=== PATIENT | female | born 1955 | race Caucasian/White ===

== ENCOUNTER 2025-03-09 19:55 | Emergency (ER) | payer OTHER, SELFPAY ==
[2025-03-09 20:05] VITALS: BP 128/65
[2025-03-09 20:07] VITALS: BP 128/65
[2025-03-09 20:11] VITALS: BMI 27.9
[2025-03-09 20:47] LABS: Blood Urea Nitrogen 28 mg/dl (7-17); Calcium 8.8 mg/dl (8.4-10.2); Carbon Dioxide 16 mmol/L (22-30); Chloride 105 mmol/L (98-107); Estimated Creatinine Clearance 61 ml/min; Glucose 377 mg/dl (70-99); Hematocrit 28.5 % (37.0-47.0); Hemoglobin 10.2 g/dL (12.0-16.0); Mean Corp Hgb Conc. 35.8 g/dL (33.0-37.0); Mean Corpuscular Volume 94.1 fL (81.0-99.0); Nucleated Red Blood Cells % 0 %; Red Cell Dist. Width 13.5 % (11.5-14.5); Sodium 132 mmol/L (135-145); eGFR > 60.00
[2025-03-09 21:00] VITALS: BP 126/47
[2025-03-09 21:19] LABS: Platelet Count 33 10^3/uL (130-400)
[2025-03-09] MEDS: NSS 500 IV (21:33)
[2025-03-09] MEDS: PROTONIX IV 80 MG IV (21:33)
[2025-03-09 22:00] VITALS: BP 131/39
[2025-03-09 22:08] VITALS: BP 139/45
[2025-03-09 22:14] LABS: AST (SGOT) 123 U/L (14-36); Albumin 3.1 g/dl (3.5-5.0); Alkaline Phosphatase 66 U/L (38-126); Blood Urea Nitrogen 30 mg/dl (7-17); Calcium 8.9 mg/dl (8.4-10.2); Carbon Dioxide 19 mmol/L (22-30); Chloride 106 mmol/L (98-107); Estimated Creatinine Clearance 61 ml/min; Glucose 403 mg/dl (70-99); Potassium 3.7 mmol/L (3.5-5.1); Sodium 133 mmol/L (135-145); Total Protein 6.4 g/dl (6.3-8.2); eGFR > 60.00
[2025-03-09 22:20] LABS: COVID-19 Antigen Negative (Negative)
[2025-03-09 22:24] LABS: ALT (SGPT) 44 U/L (0-35)
--- NOTE | 2025-03-09 22:26 | ED.GENMED ---
History of Present Illness
<Yasmin Hall PA-C - Last Filed: 03/10/25 01:44>
General
Chief Complaint: Bowel Problem
Source: patient and family (Daughter at bedside)
Exam Limitations: none
Time Seen by Provider: 03/09/25 21:02
Nursing documentation reviewed up to this point in time: agreed with
History of Present Illness
History of Present Illness:
Patient is a 69-year-old female with history hypertension who presents to the emergency department for evaluation of generalized weakness and frequent falls. Patient and her daughter state that she has had progressively worsening weakness resulting
in multiple falls over the past few days. Today�apparently her legs 'gave out '. There was no associated loss of consciousness or head strike.
Patient does report lower abdominal pain and recent tarry stools. They states she has had frequent urination and intermittent urinary incontinence.
Patient denies any chest pain or shortness of breath. No known fever or chills. Patient denies any recent vomiting or hemoptysis.
Patient does report a growth on her forehead which has been followed with her primary care and was told there is 'nothing to do' as it is simply a nonhealing wound.
Past History
<Yasmin Hall PA-C - Last Filed: 03/10/25 01:44>
Past History
ED Past Medical History: None
ED Past Surgical History:
Social History
Tobacco: Non-smoker
Living: with family
Family History
Family History: Other
Review of Systems
<SOBIA Cardoso Last Filed: 03/10/25 01:44>
Review of Systems
Allergies reviewed?: Yes
All Other Systems: ROS reviewed and negative except as documented in HPI and ROS
Phy Exam
<SOBIA Cardoso Last Filed: 03/10/25 01:44>
Physical Exam
Physical Exam:
Vitals: Tachycardic, otherwise vital signs stable. Afebrile
General: Patient is chronically ill-appearing, generally weak
Skin: Warm and dry, no rashes or lesions. Ecchymoses in right scapular region
Head: Normocephalic, atraumatic. 2 cm fungating lesion on central forehead
Eyes: Sclera nonicteric. EOMs intact. No nystagmus.
Throat: Poor dentition. Protecting airway
Neck: Normal ROM, no cervical spine tenderness, no meningismus
Cardiac: Tachycardic, normal rhythm, no murmurs.
Pulm: Normal respiratory effort, no wheezes, rales, rhonchi heard on exam
.
Abdomen: Abdomen soft. Tenderness to palpation in left lower abdomen. Nonreducible mass.
Extremities: No evidence of cyanosis or edema
Neuro: AAOx3. Grossly intact.
Psychiatric: Normal affect.
Course
<Yasmin Hall PA-C - Last Filed: 03/10/25 01:44>
Orders/Labs/Results
Orders:
Orders
03/09/25 20:10
Electrocardiogram (*1) Urgent
Reason for Study: Vertigo / Dizzy
03/09/25 20:11
EKG- Treatment ONCE
03/09/25 20:17
Type+Screen Urgent
Basic Metabolic Panel Urgent
Complete Blood Count/With Diff Urgent
03/09/25 21:23
CT Abd/pelvis W Iv Cont Urgent
Comment:
Reason For Exam: lower abdominal pain, fever
Pantoprazole [Protonix IV] 80 mg IV NOW STA
03/09/25 21:26
0.9% Sodium Chloride 500 ml [Nss] 500 ml IV BOLUS
Shoulder, Left 2 View CR [CR Shoulder - Left Min 2 View*] Urgent
Comment:
Reason For Exam: fall
03/09/25 21:43
COVID-19 Antigen Urgent
Source: Nasal Swab
Comprehensive Metabolic Panel Urgent
Lactic Acid Q4H
Comment: CANCEL 2nd LACTIC ACID IF 1st LACTIC ACID IS LESS THAN 2
Blood Culture Q30M
NANCY Source: Blood/Venous
Specimen Description:
Blood Culture Q30M
NANCY Source: Blood/Venous
Specimen Description:
Influenza A+B Rapid Molecular Urgent
NANCY Source: Nasal Swab
Specimen Description:
03/09/25 22:15
0.9% Sodium Chloride 1000 ml [Nss] 1,000 ml IV BOLUS
03/09/25 23:32
Piperacillin/Tazo 3.375 Gram [Zosyn] 3.375 gram in 50 ml IV NOW
03/09/25 23:34
NG Tube [GI tube insertion- Treatment] ONCE
03/10/25 00:07
CR Chest Portable - 1 View Urgent
Comment:
Reason For Exam: post ng tube placement
Reason Study Needs to be Portable: Unable to Transport
03/10/25 01:26
Glucose Stat
Lactic Acid Q4H
Comment: CANCEL 2nd LACTIC ACID IF 1st LACTIC ACID IS LESS THAN 2
Abnormal Lab Results
03/09/25 03/09/25 03/10/25
20:17 21:43 01:15
RBC 3.03 L 10^6/uL
(4.20-5.40)
Hgb 10.2 L g/dL
(12.0-16.0)
Hct 28.5 L %
(37.0-47.0)
MCH 33.7 H pg
(27.0-31.0)
Plt Count 33 L 10^3/uL
(130-400)
MPV 11.2 H fL
(7.4-10.4)
Absolute Lymphs (auto) 0.2 L 10^3/uL
(1.2-3.4)
Neutrophils % 89.5 H %
(42.2-75.2)
Lymphocytes % 4.2 L %
(20.5-51.1)
Sodium 132 L mmol/L 133 L mmol/L
(135-145) (135-145)
Carbon Dioxide 16 L mmol/L 19 L mmol/L
(22-30) (22-30)
BUN 28 H mg/dl 30 H mg/dl
(7-17) (7-17)
Glucose 377 H mg/dl 403 H mg/dl
(70-99) (70-99)
Lactic Acid 3.8 H mmol/L
(0.7-2.0)
Total Bilirubin 1.7 H mg/dl
(0.2-1.3)
AST 123 H U/L
(14-36)
ALT 44 H U/L
(0-35)
Albumin 3.1 L g/dl
(3.5-5.0)
POC Glucose 407 H mg/dl
(70-99)
03/10/25
01:26
RBC
Hgb
Hct
MCH
Plt Count
MPV
Absolute Lymphs (auto)
Neutrophils %
Lymphocytes %
Sodium
Carbon Dioxide
BUN
Glucose 389 H mg/dl
(70-99)
Lactic Acid 3.3 H mmol/L
(0.7-2.0)
Total Bilirubin
AST
ALT
Albumin
POC Glucose
03/09/25 20:17
03/10/25 01:26
Vital Signs
Initial and Last Documented VS:
Initial Vital Signs
Temp Pulse Resp BP Pulse Ox
98.6 F 110 20 128/65 100
03/09/25 20:05 03/09/25 20:05 03/09/25 20:05 03/09/25 20:05 03/09/25 20:05
Last Documented Vital Signs
Temp Pulse Resp BP Pulse Ox
100.0 F 94 19 124/45 100
03/10/25 00:44 03/10/25 02:30 03/10/25 02:30 03/10/25 02:00 03/09/25 22:30
<Inocencia Ley, - Last Filed: 03/09/25 22:45>
Orders/Labs/Results
Orders:
Orders
03/09/25 20:10
Electrocardiogram (*1) Urgent
Reason for Study: Vertigo / Dizzy
03/09/25 20:11
EKG- Treatment ONCE
03/09/25 20:17
Type+Screen Urgent
Basic Metabolic Panel Urgent
Complete Blood Count/With Diff Urgent
03/09/25 21:23
CT Abd/pelvis W Iv Cont Urgent
Comment:
Reason For Exam: lower abdominal pain, fever
Pantoprazole [Protonix IV] 80 mg IV NOW STA
03/09/25 21:26
0.9% Sodium Chloride 500 ml [Nss] 500 ml IV BOLUS
Shoulder, Left 2 View CR [CR Shoulder - Left Min 2 View*] Urgent
Comment:
Reason For Exam: fall
03/09/25 21:43
COVID-19 Antigen Urgent
Source: Nasal Swab
Comprehensive Metabolic Panel Urgent
Lactic Acid Q4H
Comment: CANCEL 2nd LACTIC ACID IF 1st LACTIC ACID IS LESS THAN 2
Blood Culture Q30M
NANCY Source: Blood/Venous
Specimen Description:
Blood Culture Q30M
NANCY Source: Blood/Venous
Specimen Description:
Influenza A+B Rapid Molecular Urgent
NANCY Source: Nasal Swab
Specimen Description:
03/09/25 22:15
0.9% Sodium Chloride 1000 ml [Nss] 1,000 ml IV BOLUS
03/09/25 23:32
Piperacillin/Tazo 3.375 Gram [Zosyn] 3.375 gram in 50 ml IV NOW
03/09/25 23:34
NG Tube [GI tube insertion- Treatment] ONCE
03/10/25 00:07
CR Chest Portable - 1 View Urgent
Comment:
Reason For Exam: post ng tube placement
Reason Study Needs to be Portable: Unable to Transport
03/10/25 01:26
Glucose Stat
Lactic Acid Q4H
Comment: CANCEL 2nd LACTIC ACID IF 1st LACTIC ACID IS LESS THAN 2
Abnormal Lab Results
03/09/25 03/09/25 03/10/25
20:17 21:43 01:15
RBC 3.03 L 10^6/uL
(4.20-5.40)
Hgb 10.2 L g/dL
(12.0-16.0)
Hct 28.5 L %
(37.0-47.0)
MCH 33.7 H pg
(27.0-31.0)
Plt Count 33 L 10^3/uL
(130-400)
MPV 11.2 H fL
(7.4-10.4)
Absolute Lymphs (auto) 0.2 L 10^3/uL
(1.2-3.4)
Neutrophils % 89.5 H %
(42.2-75.2)
Lymphocytes % 4.2 L %
(20.5-51.1)
Sodium 132 L mmol/L 133 L mmol/L
(135-145) (135-145)
Carbon Dioxide 16 L mmol/L 19 L mmol/L
(22-30) (22-30)
BUN 28 H mg/dl 30 H mg/dl
(7-17) (7-17)
Glucose 377 H mg/dl 403 H mg/dl
(70-99) (70-99)
Lactic Acid 3.8 H mmol/L
(0.7-2.0)
Total Bilirubin 1.7 H mg/dl
(0.2-1.3)
AST 123 H U/L
(14-36)
ALT 44 H U/L
(0-35)
Albumin 3.1 L g/dl
(3.5-5.0)
POC Glucose 407 H mg/dl
(70-99)
03/10/25
01:26
RBC
Hgb
Hct
MCH
Plt Count
MPV
Absolute Lymphs (auto)
Neutrophils %
Lymphocytes %
Sodium
Carbon Dioxide
BUN
Glucose 389 H mg/dl
(70-99)
Lactic Acid 3.3 H mmol/L
(0.7-2.0)
Total Bilirubin
AST
ALT
Albumin
POC Glucose
03/09/25 20:17
03/10/25 01:26
Vital Signs
Initial and Last Documented VS:
Initial Vital Signs
Temp Pulse Resp BP Pulse Ox
98.6 F 110 20 128/65 100
03/09/25 20:05 03/09/25 20:05 03/09/25 20:05 03/09/25 20:05 03/09/25 20:05
Last Documented Vital Signs
Temp Pulse Resp BP Pulse Ox
100.0 F 94 19 124/45 100
03/10/25 00:44 03/10/25 02:30 03/10/25 02:30 03/10/25 02:00 03/09/25 22:30
<Thor Arce PA-C - Last Filed: 03/10/25 14:47>
Orders/Labs/Results
Orders:
Orders
03/09/25 20:10
Electrocardiogram (*1) Urgent
Reason for Study: Vertigo / Dizzy
03/09/25 20:11
EKG- Treatment ONCE
03/09/25 20:17
Type+Screen Urgent
Basic Metabolic Panel Urgent
Complete Blood Count/With Diff Urgent
03/09/25 21:23
CT Abd/pelvis W Iv Cont Urgent
Comment:
Reason For Exam: lower abdominal pain, fever
Pantoprazole [Protonix IV] 80 mg IV NOW STA
03/09/25 21:26
0.9% Sodium Chloride 500 ml [Nss] 500 ml IV BOLUS
Shoulder, Left 2 View CR [CR Shoulder - Left Min 2 View*] Urgent
Comment:
Reason For Exam: fall
03/09/25 21:43
COVID-19 Antigen Urgent
Source: Nasal Swab
Comprehensive Metabolic Panel Urgent
Lactic Acid Q4H
Comment: CANCEL 2nd LACTIC ACID IF 1st LACTIC ACID IS LESS THAN 2
Blood Culture Q30M
NANCY Source: Blood/Venous
Specimen Description:
Blood Culture Q30M
NANCY Source: Blood/Venous
Specimen Description:
Influenza A+B Rapid Molecular Urgent
NANCY Source: Nasal Swab
Specimen Description:
03/09/25 22:15
0.9% Sodium Chloride 1000 ml [Nss] 1,000 ml IV BOLUS
03/09/25 23:32
Piperacillin/Tazo 3.375 Gram [Zosyn] 3.375 gram in 50 ml IV NOW
03/09/25 23:34
NG Tube [GI tube insertion- Treatment] ONCE
03/10/25 00:07
CR Chest Portable - 1 View Urgent
Comment:
Reason For Exam: post ng tube placement
Reason Study Needs to be Portable: Unable to Transport
03/10/25 01:26
Glucose Stat
Lactic Acid Q4H
Comment: CANCEL 2nd LACTIC ACID IF 1st LACTIC ACID IS LESS THAN 2
Abnormal Lab Results
03/09/25 03/09/25 03/10/25
20:17 21:43 01:15
RBC 3.03 L 10^6/uL
(4.20-5.40)
Hgb 10.2 L g/dL
(12.0-16.0)
Hct 28.5 L %
(37.0-47.0)
MCH 33.7 H pg
(27.0-31.0)
Plt Count 33 L 10^3/uL
(130-400)
MPV 11.2 H fL
(7.4-10.4)
Absolute Lymphs (auto) 0.2 L 10^3/uL
(1.2-3.4)
Neutrophils % 89.5 H %
(42.2-75.2)
Lymphocytes % 4.2 L %
(20.5-51.1)
Sodium 132 L mmol/L 133 L mmol/L
(135-145) (135-145)
Carbon Dioxide 16 L mmol/L 19 L mmol/L
(22-30) (22-30)
BUN 28 H mg/dl 30 H mg/dl
(7-17) (7-17)
Glucose 377 H mg/dl 403 H mg/dl
(70-99) (70-99)
Lactic Acid 3.8 H mmol/L
(0.7-2.0)
Total Bilirubin 1.7 H mg/dl
(0.2-1.3)
AST 123 H U/L
(14-36)
ALT 44 H U/L
(0-35)
Albumin 3.1 L g/dl
(3.5-5.0)
POC Glucose 407 H mg/dl
(70-99)
03/10/25
01:26
RBC
Hgb
Hct
MCH
Plt Count
MPV
Absolute Lymphs (auto)
Neutrophils %
Lymphocytes %
Sodium
Carbon Dioxide
BUN
Glucose 389 H mg/dl
(70-99)
Lactic Acid 3.3 H mmol/L
(0.7-2.0)
Total Bilirubin
AST
ALT
Albumin
POC Glucose
03/09/25 20:17
03/10/25 01:26
Vital Signs
Initial and Last Documented VS:
Initial Vital Signs
Temp Pulse Resp BP Pulse Ox
98.6 F 110 20 128/65 100
03/09/25 20:05 03/09/25 20:05 03/09/25 20:05 03/09/25 20:05 03/09/25 20:05
Last Documented Vital Signs
Temp Pulse Resp BP Pulse Ox
100.0 F 94 19 124/45 100
03/10/25 00:44 03/10/25 02:30 03/10/25 02:30 03/10/25 02:00 03/09/25 22:30
<Yasmin Hall PA-C - Last Filed: 03/10/25 01:44>
MDM/Problems Addressed
Differential Diagnosis Includes:
Not limited to: Acute dehydration, sepsis, incarcerated/strangulated hernia, upper GI bleeding, UTI, etc.
MDM/Problems Addressed:
69-year-old female with history as documented presenting with progressively worsening weakness and frequent falls associated with abdominal pain and dark stools. No syncopal events, fever, chest pain, or shortness of breath. Patient tachycardic on
arrival although normotensive and afebrile. Physical exam as above. Patient generally weak and chronically ill-appearing. Cardio/pulmonary assessment unremarkable. Abdomen is soft with tenderness in upper abdomen and soft umbilical hernia.
Rectal exam reveals heme positive dark brown stool. Differential broad although given heme positive stool and generalized weakness- concern for upper GI bleed. Patient appears very dehydrated on exam. Will plan to check labs, lactic, type and
screen. Will obtain CT scan abdomen/pelvis. Will give 80 IV Protonix, IV fluids and reassess.
Update: Labs reviewed. Anemia noted with hemoglobin of 10.2 and thrombocytopenia with platelet level of 33,000. Chemistry reveals acute hyperglycemia and lactic acidosis which I suspect to likely be secondary to significant dehydration. Elevation
of total bilirubin as well as AST/ALT which she has had in the past. Given significantly elevated lactic acid at 3.8�will continue to give IV fluids pending CT scan. Will plan to repeat fingerstick following IV fluids to assess hyperglycemia.
Update: CT scan reveals findings consistent with a small bowel obstruction likely secondary to internal hernia as well as umbilical hernia with mild fat stranding. I did attempt to reduce umbilical hernia however was unsuccessful although patient
does not have significant pain or any skin changes in umbilical region. Will cover patient with IV Zosyn. Case discussed with general surgery�NG tube placed and will admit to hospitalist with general surgery consult. Hospitalist aware.
Update 11:55 PM: After general surgery further review of CT imaging there is concern for progressive cirrhosis and significant mortality/postoperative complications. Recommendation was made by Dr. Alarcon for transfer down to [facility] for continued
management. Discussed with [facility] general surgery and patient accepted to service of Dr. Ankit Arciniega. Discussed with both patient and her daughter who consented to transfer and further care. Plan for transfer onto a.m. Patient remains
hemodynamically stable and comfortable.
Chronic conditions affecting care:
Hypertension
Acute Exacerbation and/or Progression of Chronic Illness:
Acutely hypertensive, progressive cirrhosis
<Yasmin Hall PA-C - Last Filed: 03/10/25 01:44>
*Radiology
Radiology exam reviewed: radiology read reviewed
*Pulse Oximetry
SaO2: 100
Oxygen Mode of Delivery: Room air
Patient hypoxic: no
*EKG
Interpreted by ED Provider?: Yes
Interpretation: abnormal
Comparison EKG: no changes
Heart Rate: 109
Rate: tachycardiac
Rhythm: sinus
[place]: normal axis
Interval: normal QT interval
QRS Pattern: normal QRS
Ischemia: no ischemia
*Technology Manager Interpretation
Rate: tachycardiac
Interpretation: abnormal
Heart Rate: 108
Rhythm: sinus
*Critical Care Note
Total Time (30-74mins, 75-104mins- exclusive of procedures): Not Applicable
<Yasmin Hall PA-C - Last Filed: 03/10/25 01:44>
Patient Management
Discussion with other providers: Hospitalist and [employer] (Case discussed with general surgery)
Escalation/DeEscalation of care consider admission/obs:
Transfer to [facility] for continued care
<Thor Arce PA-C - Last Filed: 03/10/25 14:47>
Update Note
Update Note:
03/10/2025 1447: Positive blood culture result gram neg bacilli. Faxed to [place] at [phone]
ED Attending Note
<Yasmin Hall PA-C - Last Filed: 03/10/25 01:44>
-
Portions of this chart may have been created with voice recognition software.� Occasional wrong word or��sound alike� substitutions may have occurred due to the inherent limitations of voice recognition software.
<Inocencia Ley, DO - Last Filed: 03/09/25 22:45>
ED Attending Note
Patient seen and examined by attending physician: Yes
I performed the substantive portion of visit, reviewed & personally made and approve the management plan that is documented in note by myself or ALESSIA.: Yes
I performed a history and physical exam of patient and discussed management with resident, I reviewed resident's note and agree with documented findings and plan of care.: Yes
ED Attending Note:
69-year-old female with history of hypertension, fibromyalgia, cirrhosis presenting to the emergency department for blood per rectum. Notes dark stools for the past several days and generalized weakness with abdominal discomfort. Also reports has
been having frequent falls. Denies head injury, notes that she has just been very weak. She is not on any blood thinners. Denies any vomiting.
Vital signs on arrival significant for tachycardia. On examination, patient resting comfortably, alert. She does appear slightly pale. Generalized tenderness to the abdomen, however soft and nondistended. Pain appears to be most prominent in the
left lower quadrant with prominent mass versus hernia. Noted to be Hemoccult positive by physician metal moulder's assistant, dark stool. Concern for acute GI bleed. Patient had laboratory analysis obtained prior to my assessment with hemoglobin stable.
Platelets are low, however appear to be downtrending. Patient consented for blood, however holding any transfusion at this time given hemodynamic stability. Lactate is also elevated with concern for dehydration versus compromise of the bowel given
tenderness on exam. Patient receiving IV fluids. Plan for CT of the abdomen and pelvis and admission
Discharge Plan
Departure
Patient Disposition: Acute Care Hospital
Date of Disposition: 03/09/25
Time of Disposition: 23:32
Discharge Problem:
Small bowel obstruction, Upper gastrointestinal bleed, Lactic acidosis, Generalized weakness, Cirrhosis
Prescriptions:
No Action
No Current Medications
0
Referrals:
UNKNOWN - PT DOES,NOT KNOW [Family Provider]
Hospital Transfer
Other hospital: [facility]
I certify that the patient requires transfer: Yes
Discussed case with accepting physician: Dr. Ankit Arciniega
Reason for transfer: higher level of care
Interventions
Interventions:
*Risk Screen - Suicide Last Done: 03/09/25 20:11
*General Assessment Last Done: 03/09/25 20:11
*Neglect/Abuse Screening Last Done: 03/09/25 20:11
*ED- Fall Risk Assessment Last Done: 03/09/25 20:11
*ED COVID-19 Vaccine History Last Done: 03/09/25 20:11
*Nursing Disposition Last Done: 03/10/25 02:44
EZ-Rscncm-Llmczszdur Assessment Last Done: 03/09/25 20:12
Discharge Date and Time
Discharge Date/Time: 03/10/25 02:45
Print Language: S[place]
[2025-03-09] MEDS: NSS 1000 IV (22:31)
[2025-03-09 23:00] VITALS: BP 138/38
[2025-03-09] MEDS: ZOSYN 50 IV (23:49)
[2025-03-10] VITALS: BP 175/61
[2025-03-10 01:00] VITALS: BP 139/44
[2025-03-10 01:17] LABS: Glucose - Point of Care 407 mg/dl (70-99)
[2025-03-10 01:53] LABS: Glucose 389 mg/dl (70-99)
[2025-03-10 02:00] VITALS: BP 124/45
== END 2025-03-10 02:45 | disposition short-term general hospital (02) ==
LOC: EMR 19:55
PROVIDERS: Physician Assistant; EMERGENCY PHYSICIAN Student in an Organized Health Care Education/Training Program
DX: K56.609 Unspecified intestinal obstruction, unspecified as to partial versus complete obstruction (principal); K92.1 Melena; K42.9 Umbilical hernia without obstruction or gangrene; E87.20 Acidosis, unspecified; K74.60 Unspecified cirrhosis of liver; R29.6 Repeated falls; I10 Essential (primary) hypertension; D64.9 Anemia, unspecified; Z11.52 Encounter for screening for COVID-19; D69.6 Thrombocytopenia, unspecified; K76.6 Portal hypertension; K80.20 Calculus of gallbladder without cholecystitis without obstruction; M79.7 Fibromyalgia; R73.9 Hyperglycemia, unspecified
CPT/HCPCS: 99285; 96365; 96375; 96361; 71045; 73030; 74177; 80048; 80053; 82947; 82962; 83605; 85025; 86850; 86900; 86901; 87040; 87077; 87186; 87205; 87502; 87811; 93005; Q9967

== ENCOUNTER 2025-08-29 21:22 | Inpatient (IN) | payer OTHER, SELFPAY ==
[2025-08-29 17:34] VITALS: BMI 18.6
[2025-08-29 17:54] VITALS: BP 132/45
[2025-08-29 18:00] VITALS: BP 120/43
[2025-08-29 18:10] LABS: Hematocrit 23.7 % (37.0-47.0); Hemoglobin 8.5 g/dL (12.0-16.0); Mean Corp Hgb Conc. 35.9 g/dL (33.0-37.0); Mean Corpuscular Volume 97.5 fL (81.0-99.0); Nucleated Red Blood Cells % 0 %; Platelet Count 45 10^3/uL (130-400); Red Cell Dist. Width 14.3 % (11.5-14.5); Urine Character Clear (Clear)
[2025-08-29 18:28] LABS: ALT (SGPT) 20 U/L (0-35); AST (SGOT) 39 U/L (14-36); Albumin 4.1 g/dl (3.5-5.0); Alkaline Phosphatase 79 U/L (38-126); Blood Urea Nitrogen 42 mg/dl (7-17); Calcium 9.1 mg/dl (8.4-10.2); Carbon Dioxide 20 mmol/L (22-30); Chloride 104 mmol/L (98-107); Estimated Creatinine Clearance 38 ml/min; Glucose 110 mg/dl (70-99); Potassium 5.1 mmol/L (3.5-5.1); Sodium 132 mmol/L (135-145); Total Protein 7.4 g/dl (6.3-8.2); Troponin I < 0.012 ng/ml; eGFR > 60.00
--- NOTE | 2025-08-29 18:30 | ED.GENMED ---
History of Present Illness
<CALLY Salas - Last Filed: 08/29/25 20:44>
General
Chief Complaint: Change in Mental Status
Source: patient
Exam Limitations: none
Time Seen by Provider: 08/29/25 18:29
Nursing documentation reviewed up to this point in time: agreed with
History of Present Illness
History of Present Illness:
Patient is a 69-year-old female with past medical history of cirrhosis, esophageal varices renal mass, diabetes presents to the ER. Daughter at bedside reports patient lives with her and this morning started to not feel well. She was very weak.
Daughter reports patient was found in her bed incontinent of urine. She was fine yesterday.
Daughter reports patient does not have a GI specialist or has been treated for right renal mass or cirrhosis because she was recently dropped from insurance and insurance changed.
Patient was noted to have redness to her forehead. daughter reports this was not fully evaluated and treated however there was a question if this was a type of skin cancer.
Past History
<CALLY Salas - Last Filed: 08/29/25 20:44>
Past History
ED Past Medical History: None
ED Past Surgical History:
Social History
Tobacco: Non-smoker
Living: with family
Family History
Family History: Other
Phy Exam
<CALLY Salas - Last Filed: 08/29/25 20:44>
General Physical Exam
General Presentation: no apparent distress
General age: appears older than age
General Skin: warm and dry
General Habitus: elderly
General Mental: other (sleepy )
General Hydration: dry mucous membranes
Cardiovascular Exam
Cardiovascular Exam: regular rate/rhythm, no murmur and normal peripheral pulses
Pulmonary Exam
Pulmonary Exam: lungs clear and no respiratory distress
Gastrointestinal Exam
Gastrointestinal Exam: soft and other (brown stool heme negative)
Neurological Exam
Neurological Exam: other (sleepy answers minimal questions )
Musculoskeletal Exam
Musculoskeletal Exam: full ROM
Skin Exam
Skin Exam: normal color and warm/dry
Sepsis
<CALLY Salas - Last Filed: 08/29/25 20:44>
Sepsis Screening
Sepsis Assessment: Sepsis Ruled Out
Sepsis Screen
Sepsis Screen: Sepsis Ruled Out
Date: 08/29/25
Time: 20:44
Course
<CALLY Salas - Last Filed: 08/29/25 20:44>
Orders/Labs/Results
Orders:
Orders
08/29/25 17:42
Electrocardiogram (*1) Urgent
Reason for Study: Fatigue / Weakness
EKG- Treatment ONCE
08/29/25 17:44
CMP [Comprehensive Metabolic Panel] Urgent
Complete Blood Count/With Diff Urgent
Lactic Acid Urgent
Troponin I Urgent
Urinalysis Reflex To Culture Urgent
Date Specimen was Collected: 08/29/25
Time Specimen was Collected: 17:42
Urine Microscopic Reflex Cult Urgent
08/29/25 18:03
Straight Cath As Directed
Frequency: One time now
08/29/25 18:30
CT Cervical Spine W/o Iv Contr Urgent
Comment:
Reason For Exam: trauma
CT Head W/o Iv Contrast Urgent
Comment:
Reason For Exam: trauma
08/29/25 19:09
Ammonia Urgent
08/29/25 20:09
0.9% Sodium Chloride 1000 ml [Nss] 1,000 ml IV BOLUS
08/29/25 20:18
PT/INR [Prothrombin Time] Urgent
PTT Urgent
08/29/25 20:35
Lactulose Enema 300 ml RECTAL NOW STA
Abnormal Lab Results
08/29/25 08/29/25
17:44 19:09
WBC 3.0 L 10^3/uL
(4.8-10.8)
RBC 2.43 L 10^6/uL
(4.20-5.40)
Hgb 8.5 L g/dL
(12.0-16.0)
Hct 23.7 L %
(37.0-47.0)
MCH 35.0 H pg
(27.0-31.0)
Plt Count 45 L 10^3/uL
(130-400)
Absolute Lymphs (auto) 0.9 L 10^3/uL
(1.2-3.4)
Monocytes % 10.1 H %
(1.7-9.3)
Sodium 132 L mmol/L
(135-145)
Carbon Dioxide 20 L mmol/L
(22-30)
BUN 42 H mg/dl
(7-17)
Glucose 110 H mg/dl
(70-99)
Total Bilirubin 3.1 H mg/dl
(0.2-1.3)
AST 39 H U/L
(14-36)
Ammonia 128 H umol/L
(9-30)
Ur Occult Blood Reflex 3+ A
(Negative)
Urine RBC 7-10 A /HPF
(0-2)
Urine Bacteria (Reflex) Few A
(Negative)
Urine Albumin (Reflex) 1+ A
(Neg - Trace)
08/29/25 17:44
08/29/25 17:44
Vital Signs
Initial and Last Documented VS:
Initial Vital Signs
Temp
98.1 F
08/29/25 17:34
Last Documented Vital Signs
Temp Pulse Resp BP Pulse Ox
98.1 F 75 14 116/43 100
08/29/25 17:34 08/29/25 20:15 08/29/25 20:15 08/29/25 19:28 08/29/25 20:15
[employer] Android Developer consulted with Physician
J[employer] Android Developer consulted with physician?: Yes
Name of Physician Consulted: nura
<Nadia Spann MD - Last Filed: 08/29/25 20:17>
Orders/Labs/Results
Orders:
Orders
08/29/25 17:42
Electrocardiogram (*1) Urgent
Reason for Study: Fatigue / Weakness
EKG- Treatment ONCE
08/29/25 17:44
CMP [Comprehensive Metabolic Panel] Urgent
Complete Blood Count/With Diff Urgent
Lactic Acid Urgent
Troponin I Urgent
Urinalysis Reflex To Culture Urgent
Date Specimen was Collected: 08/29/25
Time Specimen was Collected: 17:42
Urine Microscopic Reflex Cult Urgent
08/29/25 18:03
Straight Cath As Directed
Frequency: One time now
08/29/25 18:30
CT Cervical Spine W/o Iv Contr Urgent
Comment:
Reason For Exam: trauma
CT Head W/o Iv Contrast Urgent
Comment:
Reason For Exam: trauma
08/29/25 19:09
Ammonia Urgent
08/29/25 20:09
0.9% Sodium Chloride 1000 ml [Nss] 1,000 ml IV BOLUS
08/29/25 20:18
PT/INR [Prothrombin Time] Urgent
PTT Urgent
08/29/25 20:35
Lactulose Enema 300 ml RECTAL NOW STA
Abnormal Lab Results
08/29/25 08/29/25
17:44 19:09
WBC 3.0 L 10^3/uL
(4.8-10.8)
RBC 2.43 L 10^6/uL
(4.20-5.40)
Hgb 8.5 L g/dL
(12.0-16.0)
Hct 23.7 L %
(37.0-47.0)
MCH 35.0 H pg
(27.0-31.0)
Plt Count 45 L 10^3/uL
(130-400)
Absolute Lymphs (auto) 0.9 L 10^3/uL
(1.2-3.4)
Monocytes % 10.1 H %
(1.7-9.3)
Sodium 132 L mmol/L
(135-145)
Carbon Dioxide 20 L mmol/L
(22-30)
BUN 42 H mg/dl
(7-17)
Glucose 110 H mg/dl
(70-99)
Total Bilirubin 3.1 H mg/dl
(0.2-1.3)
AST 39 H U/L
(14-36)
Ammonia 128 H umol/L
(9-30)
Ur Occult Blood Reflex 3+ A
(Negative)
Urine RBC 7-10 A /HPF
(0-2)
Urine Bacteria (Reflex) Few A
(Negative)
Urine Albumin (Reflex) 1+ A
(Neg - Trace)
08/29/25 17:44
08/29/25 17:44
Vital Signs
Initial and Last Documented VS:
Initial Vital Signs
Temp
98.1 F
08/29/25 17:34
Last Documented Vital Signs
Temp Pulse Resp BP Pulse Ox
98.1 F 75 14 116/43 100
08/29/25 17:34 08/29/25 20:15 08/29/25 20:15 08/29/25 19:28 08/29/25 20:15
<CALLY Salas - Last Filed: 08/29/25 20:44>
MDM/Problems Addressed
Differential Diagnosis Includes:
not limited to :
Liver failure elevated ammonia, infection dehydration
MDM/Problems Addressed:
Patient is a 6-year-old female with history of cirrhosis brought by EMS. Patient lives with daughter daughter reports patient seemed confused lethargic today. Patient has a history of cirrhosis however not presently managed with insurance issues.
In addition she has a possible renal mass unknown if cancercous. daughter reports no good follow up due to insurance issues.
Patient presents very tired will open her eyes to her name but otherwise does not answer questions. Lungs are clear patient does have what looks like small amount of skin breakdown to bottom. white count is low low at 3.0 hemoglobin low at 8.5
brown stool heme-negative platelets are also of 45,000. Ammonia level is elevated significantly at 128 bilirubin 3.1 AST 39 lactic is normal BUN is elevated at 42 fluid bolus given. Patient is not awake enough to take oral ammonia. Will discuss
with GI. Case discussed ED physician evaluated patient. Pt will require admission.
As discussed with GI will order lactulose enemas since patient unable to take oral p.o.'s.
<CALLY Salas - Last Filed: 08/29/25 20:44>
*Radiology
Radiology exam reviewed: radiology read reviewed
*Pulse Oximetry
SaO2: 100
Oxygen Mode of Delivery: Room air
Patient hypoxic: no
*EKG
Interpreted by ED Provider?: Yes
Interpretation: normal
Heart Rate: 82
Rate: normal
Rhythm: sinus
Ischemia: no ischemia
*Critical Care Note
Total Time (30-74mins, 75-104mins- exclusive of procedures): Not Applicable
Data Reviewed
Review of Other/Old Records Reveals: Labs and Discharge Summary
Source: family
<CALLY Salas - Last Filed: 08/29/25 20:44>
Patient Management
Discussion with other providers: [facility] (MICHELE Landry Do )
ED Attending Note
<CALLY Salas - Last Filed: 08/29/25 20:44>
-
Portions of this chart may have been created with voice recognition software.� Occasional wrong word or��sound alike� substitutions may have occurred due to the inherent limitations of voice recognition software.
<Nadia Spann MD - Last Filed: 08/29/25 20:17>
ED Attending Note
Patient seen and examined by attending physician: Yes
I performed the substantive portion of visit, reviewed & personally made and approve the management plan that is documented in note by myself or ALESSIA.: Yes
ED Attending Note:
Patient appears jaundice in the acute. Opens eyes to voice and then shuts eyes. No acute respiratory distress. Abdomen is soft and nontender.
Discharge Plan
Departure
Patient Disposition: Admit
Date of Disposition: 08/29/25
Time of Disposition: 20:43
Admit to: Telemetry
Admit to doctor: hospitalist
Presentation/result/management discussed w/ accepting MD/DO: Hospitalist
Patient with high blood pressure during this ER visit?: No
Condition: Fair
Covid-19: Not Applicable
Discharge Problem:
Acute hepatic encephalopathy, Pancytopenia
Prescriptions:
No Action
No Current Medications
0
Referrals:
UNKNOWN - PT DOES,NOT KNOW [Unknown Provider]
Interventions
Interventions:
*General Assessment Last Done: 08/29/25 17:34
*Neglect/Abuse Screening Last Done: 08/29/25 17:34
*ED COVID-19 Vaccine History Last Done: 08/29/25 17:34
*ED Influenza Vaccine History Last Done: 08/29/25 17:34
[facility] Risk Assessment Tool Last Done: 08/29/25 17:34
*Risk Screen - Suicide (C-SSRS) Last Done: 08/29/25 17:34
ED- Neurological Assessment Last Done: 08/29/25 17:39
ED Swallowing Screen Last Done: 08/29/25 17:57
Discharge Date and Time
Print Language: HEBREW
[2025-08-29 19:00] VITALS: BP 108/40
[2025-08-29 19:28] VITALS: BP 116/43
[2025-08-29 19:28] LABS: Ammonia 128 umol/L (9-30)
[2025-08-29 19:57] LABS: Urine Squamous Cell 0-2 /LPF (Few); Urine White Cell 0-2 /HPF (0-5)
[2025-08-29] MEDS: NSS 1000 IV (20:15)
[2025-08-29 20:33] LABS: INR 1.36; PT 16.5 Sec (11.4-14.6)
[2025-08-29 20:34] LABS: APTT 28.2 Sec (23.4-35.0)
--- NOTE | 2025-08-29 20:41 | HPS.HSE ---
Addendum entered and electronically signed by Murali Zhou DO 08/29/25 22:01:
Patient seen and examined independently. Agree with findings and plan as set forth by CALLY Rouse.
Patient is a 69y F with PMH significant for cirrhosis, renal mass, DM-II who presents to ED for evaluation of lethargy / somnolence. History obtained from daughter at bedside. Patient lives with her daughter who notes she was very active
yesterday and did a lot around the house to prepare for the holiday. She ate / drank very little reportedly. Today she was extremely sleepy / confused and was difficult to wake for most of the day. This afternoon / evening when her somnolence
persisted 911 was called and she was brought to the ED for further evaluation.
Daughter states that patient has had difficulties in chronic healthcare follow-up due to changes in insurance, cancelled appointments, etc.
She is not on lactulose, Xifaxan, etc.
Ass:
Cirrhosis with Thrombocytopenia and Esophageal Varices
Acute Hepatic Encephalopathy
Iron Deficiency Anemia
Benign Hypertension
DM-II
Right Renal Mass
Plan:
Admit for further evaluation and treatment.
Rectal lactulose until mental status improves and then switch to PO administration.
Follow for clinical improvement.
GI evaluation for additional recommendations.
Continue furosemide for now. Hold spironolactone acutely with borderline elevated potassium.
Adjust med regimen as needed to avoid future episodes of encephalopathy.
Check abdominal US.
Will need improved outpatient follow-up with multiple chronic health issues.
Original Note:
Family Physician
-
Family Physician: Ede Escalante MD
Chief Complaint
-
confusion, lethargic.
History of Present Illness
69-year-old female with past medical history of cirrhosis, esophageal varices, renal mass, diabetes presents to the ER with confusion, change in MS. patient was not eating well since yesterday. today she stated not feeling well. progressively she
just got weak, lethargic and confused. Daughter reports patient was found in her bed incontinent of urine.ROS limited as she is not answering appropriately. patient follows physicians at [facility] but everytime they have an appointment, it gets
cancelled. she has not seen anyone since March. she does have insurance problems as well.
noted hepatic encephalopathy. lactulose in ER. admitting for further management.
Medical History
Past Medical History
Past Medical History: Reports Other
Additional Past Medical History:
hep A, calvin-Balderas,staph infection, cirrhosis, ftty liver, kidney mass
Past Surgical History: Reports Other
Additional Past Surgical History:
c section.
Social History
Tobacco: Non-smoker
Alcohol: Occasional
Drug: None
Living: With Family
Family History
Family History: Not pertinent
Allergies / Home Medications
Allergies reflects when Allergies were last updated in [facility].
Home Medications with original date entered in [facility]
Allergy/Medication List:
Allergies
Allergy/AdvReac Type Severity Reaction Status Date / Time
erythromycin base Allergy Anaphylaxis Verified 03/09/25 20:04
aspartame (From Nutrasweet AdvReac Mild Unknown Verified 03/09/25 20:04
Aspartame)
ciprofloxacin AdvReac Mild Nausea / Verified 03/09/25 20:04
Vomiting
Latex, Natural Rubber AdvReac Mild Rash Verified 03/09/25 20:04
Home Medications
No Meds [No Current Medications] 03/09/25
Review of Systems
-
Unable to obtain full review of systems at this time due to: Acuity
Physical Exam
Vital Signs
Vital Signs
Temp Pulse Resp BP Pulse Ox
98.1 F 75 14 116/43 100
08/29/25 17:34 08/29/25 20:15 08/29/25 20:15 08/29/25 19:28 08/29/25 20:15
Physical Exam
General: Well Developed, Well Nourished and No Apparent Distress
HEENT: NormoCephalic, Moist mucous membranes and Atraumatic
Respiratory: Clear
Cardiac: S1/S2 and Regular Rhythm; No Murmur or Rub
GI: Soft, Non Tender, Non Distended and Normal Bowel Sounds; No Organomegaly
Rectal: Deferred by Provider
Musculoskeletal: No Clubbing, No Cyanosis and No Edema
Skin: No Rash
Neuro: Nonfocal/grossly intact
Laboratory Results
-
08/29/25 17:44
08/29/25 17:44
Laboratory Results
PT 16.5 Sec (11.4-14.6) H 08/29/25 20:18
INR 1.36 08/29/25 20:18
APTT 28.2 Sec (23.4-35.0) 08/29/25 20:18
Lactic Acid 1.8 mmol/L (0.7-2.0) 08/29/25 17:44
Total Bilirubin 3.1 mg/dl (0.2-1.3) H 08/29/25 17:44
AST 39 U/L (14-36) H 08/29/25 17:44
ALT 20 U/L (0-35) 08/29/25 17:44
Alkaline Phosphatase 79 U/L (38-126) 08/29/25 17:44
Troponin I < 0.012 ng/ml 08/29/25 17:44
Data Reviewed
-
Lab Data: Labs Reviewed by me
Impression/Plan
-
#hepatic encephalopathy
#hxt of cirrhosis
#hxt of esophageal varices
-ammonia 125, AST 39, Tbili 3.1
-lactulose TID
-obtain US of abdomen
-Gi consulted.
-head CT negative
-on Lasix
-IV PPI BID
-held spironolactone
#pancytopenia
-wbc 3.0,hgb 8.5, platelets 45
-ctm
#essential HTN
-coreg continued with hold parameter
#IDDM
-hold metformin
-sliding scale
#DVT Prophylaxis
-scd
#CODE status
-full code
[2025-08-29 21:00] VITALS: BP 124/48
[2025-08-29 21:44] LABS: Iron 98 ug/dl (37-170)
[2025-08-29 21:53] LABS: Total Iron Binding Capacity 278 ug/dl (265-497)
[2025-08-29 22:20] LABS: Ferritin 357.0 ng/ml (11.1-264.0)
[2025-08-29 22:51] LABS: Folate 8.2 ng/ml (2.76-20); Vitamin B12 683 pg/ml (239-931)
[2025-08-29 23:00] VITALS: BP 138/67; BMI 17.8
[2025-08-30] MEDS: PROTONIX IV 40 MG IV ×3 (00:03→19:21)
[2025-08-30] MEDS: NSS (PRESERVATIVE FREE) 10 ML IV ×3 (00:06→19:20)
[2025-08-30] MEDS: ZOSYN 50 IV ×2 (00:06→06:14)
[2025-08-30 00:21] LABS: Glucose - Point of Care 134 mg/dl (70-99)
[2025-08-30] MEDS: LACTULOSE ENEMA 300 ML RECTAL (01:35)
--- NOTE | 2025-08-30 05:14 | PTCARENOTE ---
Patient received from ED via stretcher and was pulled to bed by staff. Daughter was at bedside but was unable to stay for admission info. Patient initially uncooperative but then lethargic but more cooperative. Bed alarm in place for safety. See
nursing assessment for physical findings. Enema administered per order but patient was unable to hold. Minimal stool noted. NPO maintained. IV ABX per order.
[2025-08-30 06:21] LABS: Glucose - Point of Care 158 mg/dl (70-99)
[2025-08-30] MEDS: NOVOLOG FLEXPEN-LOW RESISTANCE 1 UNITS SC (06:41)
[2025-08-30 07:00] VITALS: BP 135/61
[2025-08-30 08:34] LABS: Hematocrit 23.0 % (37.0-47.0); Hemoglobin 8.4 g/dL (12.0-16.0); Mean Corp Hgb Conc. 36.5 g/dL (33.0-37.0); Mean Corpuscular Volume 96.6 fL (81.0-99.0); Platelet Count 43 10^3/uL (130-400); Red Cell Dist. Width 14.3 % (11.5-14.5)
[2025-08-30 08:41] LABS: Ammonia 32 umol/L (9-30)
[2025-08-30 08:52] LABS: ALT (SGPT) 19 U/L (0-35); AST (SGOT) 35 U/L (14-36); Albumin 4.0 g/dl (3.5-5.0); Alkaline Phosphatase 84 U/L (38-126); Blood Urea Nitrogen 34 mg/dl (7-17); Calcium 9.2 mg/dl (8.4-10.2); Carbon Dioxide 15 mmol/L (22-30); Chloride 107 mmol/L (98-107); Estimated Creatinine Clearance 36 ml/min; Glucose 145 mg/dl (70-99); Magnesium 2.3 mg/dl (1.6-2.3); Potassium 4.0 mmol/L (3.5-5.1); Sodium 136 mmol/L (135-145); Total Protein 7.4 g/dl (6.3-8.2); eGFR > 60.00
--- NOTE | 2025-08-30 09:18 | W.PN.HOSP.TC ---
Addendum entered and electronically signed by Tanya Kang MD 08/30/25 12:39:
stop Zosyn, no evidence of infection
Patient's daughter states that renal mass is known but they have not been able to follow up with a surgeon at [facility] yet. Reviewing with our Urologist to see if she can be seen at
Additionally, A1c only 3.9. She gets Lantus at home. concerned overnight hypoglycemic episodes in setting of liver disease. stop further insulin and monitor BGL closely here.
Original Note:
Today's Communication/Plan
-
continue Lactulose
hold Lasix today
PT/OT
will update daughter
Assessment / Plan
Assessment / Plan
Head CT
IMPRESSION:
No acute intracranial abnormality noted.
Abdominal US
IMPRESSION:
1. Multiple gallstones within the gallbladder. Gallbladder is contracted. Mild gallbladder wall thickening. Acute cholecystitis is considered less likely due to lack of gallbladder distention, however not completely excluded. No significant biliary
ductal dilation.
2. Heterogeneous mass within the right kidney measures 8.9 cm in diameter, and is highly concerning for renal cell carcinoma (also seen on prior CT dated 03/09/2025)
3. The pancreas, spleen, and left kidney were not visualized due to overlying bowel gas and difficulties with patient cooperation.
Hepatic encephalopathy
Hx esophageal varices (2019); hx cirrhosis; poor outpatient follow up
-ammonia 125 on admission; Head CT without acute event
-s/p rectal Lactulose with multiple BM and improvement in mentation this morning
-continue oral Lactulose
-US results above
-lactulose TID
-GI consulted
-hold Lasix
-IV PPI BID
-held spironolactone
Right Renal Mass
-will need to discuss wtih daughter if this is known
#pancytopenia
-monitor
#essential HTN
-hold C
Hx SBO transferred to [place] 03/29
#IDDM
hold metformin
sliding scale
#DVT Prophylaxis SCD
#CODE status
-full code
Anticipated Discharge: 24 - 48 hours
Subjective/Interval History
-
Date of Service: August 30, 2025
she is awake/alert
able to tell me she's here 2/2 liver problems
having multiple BM
Objective Data
-
Labs:
Laboratory Results
08/30/25
07:58
WBC 3.4 L
Hgb 8.4 L
Hct 23.0 L
Plt Count 43 L
Sodium 136
Potassium 4.0
Chloride 107
Carbon Dioxide 15 L
BUN 34 H
Creatinine 1.0
Glucose 145 H
Calcium 9.2
Total Bilirubin 4.0 H
AST 35
ALT 19
Alkaline Phosphatase 84
Vital Signs:
Vital Signs
Temp Pulse Resp BP Pulse Ox
97.4 F 92 16 135/61 100
08/30/25 07:00 08/30/25 07:00 08/30/25 07:00 08/30/25 07:00 08/30/25 07:00
I&O
08/29/25 08/30/25 08/31/25
06:59 06:59 06:59
Intake Total 100 / 100
Balance 100 / 100
Review of Systems
-
History Source: Patient
All other systems: Reviewed and negative
Physical Exam
-
General: No Apparent Distress and Other (frail appearing, awake/alert )
HEENT: Other (scab mid forehead)
Respiratory: Clear to Auscultation; Negative Wheezes
Cardiac: Regular Rhythm and S1/S2
GI: Soft and Nontender
Musculoskeletal: No Edema
Skin: Warm and Dry; Negative Rash
Neuro: AO x 3
Psych: Calm and Confused
Data Reviewed
-
Diagnostic Radiology: Report Reviewed by me
Labs: Labs Reviewed by me
[2025-08-30] MEDS: COREG 6.25 MG PO (09:29)
[2025-08-30] MEDS: DUPHALAC/CHRONULAC 20 GRAMS PO ×3 (09:29→22:02)
[2025-08-30 09:37] LABS: Glycohemoglobin (HgbA1c) 3.9 % (4.0-5.9)
--- NOTE | 2025-08-30 10:22 | PTCARENOTE ---
pt awake oriented to self place time. forgetful and has some pauses to speech to word search. following commands. passed nursing swallow eval. inc of urine and stool.
[2025-08-30 12:13] VITALS: BP 127/64; PULSE 73; O2SAT 99
[2025-08-30 12:15] LABS: Glucose - Point of Care 173 mg/dl (70-99)
[2025-08-30] MEDS: ZOSYN IV (12:22)
--- NOTE | 2025-08-30 14:29 | CON.GI ---
Consultation
-
Date/Time Consultation Requested: 08/30/2025
Date/Time Consultation Performed: 08/30/2025
Requesting Provider: Hospitalist
Performing Provider: Sonya SAENZ
Reason for Consultation: AMS/ liver cirrhosis
Medical History
Chief Complaint / HPI
Chief Complaint: confusion
History of Present Illness:
69-year-old female with past medical history of decompensated liver cirrhosis with variceal bleeding, renal mass, diabetes admitted to ED with change in mental status. Patient has been progressively feeling lethargic with loss of appetite over the
last few days. Most of the information gathered from patient's daughter. Patient was diagnosed with liver cirrhosis back in 2018 when she presented with upper GI bleeding at that time. Since then patient has not been following up regularly with
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 She has seen some liver doctors in the past but her daughter unable to recall the names of the doctors. She was told likely etiology of liver cirrhosis was fatty liver. Patient was recently transferred to [facility] with generalized
weakness / SBO and was seen by GI team during that time. Patient also underwent EGD during that admission in March 2025 and required band ligation for varices. No prior history of paracentesis. Patient also has not followed with any urologist
consistently regarding renal mass noted back in 2018. As per daughter she was reassured in the past.
Past Medical History
Past Medical History: Other ( cirrhosis, ftty liver, kidney mass, hx of Hep A infection )
Past Surgical History:
Social History
Tobacco: Non-Smoker
Alcohol: Occasional
Drug: None
Allergies / Home Medications
Allergy/AdvReac Type Severity Reaction Status Date / Time
erythromycin base Allergy Anaphylaxis Verified 03/09/25 20:04
aspartame (From Nutrasweet AdvReac Mild Unknown Verified 03/09/25 20:04
Aspartame)
ciprofloxacin AdvReac Mild Nausea / Verified 03/09/25 20:04
Vomiting
Latex, Natural Rubber AdvReac Mild Rash Verified 03/09/25 20:04
�Medication �Instructions �Recorded
carvedilol 6.25 mg tablet 6.25 mg PO BID 08/29/25
furosemide 20 mg tablet 20 mg PO DAILY 08/29/25
insulin glargine 100 unit/mL (3 7 unit SC HS 08/29/25
mL) subcutaneous pen (Lantus
Solostar U-100 Insulin)
spironolactone 50 mg tablet 50 mg PO DAILY 08/29/25
Review of Systems
Vital Signs
Temp Pulse Resp BP Pulse Ox
97.4 F 92 16 135/61 100
08/30/25 07:00 08/30/25 09:29 08/30/25 07:00 08/30/25 09:29 08/30/25 07:00
Physical Exam
Exam
General: Comfortable
Respiratory: Clear
Cardiac: S1/S2
GI: Soft, Non Tender and Non Distended
Neuro: Awake, Alert and AO x 3
Results
WBC 3.4 10^3/uL (4.8-10.8) L 08/30/25 07:58
Hgb 8.4 g/dL (12.0-16.0) L 08/30/25 07:58
Hct 23.0 % (37.0-47.0) L 08/30/25 07:58
MCV 96.6 fL (81.0-99.0) 08/30/25 07:58
Plt Count 43 10^3/uL (130-400) L 08/30/25 07:58
Absolute Neuts (auto) 1.7 10^3/uL (1.4-6.5) 08/29/25 17:44
PT 16.5 Sec (11.4-14.6) H 08/29/25 20:18
INR 1.36 08/29/25 20:18
APTT 28.2 Sec (23.4-35.0) 08/29/25 20:18
Sodium 136 mmol/L (135-145) 08/30/25 07:58
Potassium 4.0 mmol/L (3.5-5.1) 08/30/25 07:58
Chloride 107 mmol/L (98-107) 08/30/25 07:58
Carbon Dioxide 15 mmol/L (22-30) L 08/30/25 07:58
BUN 34 mg/dl (7-17) H 08/30/25 07:58
Creatinine 1.0 mg/dL (0.6-1.0) 08/30/25 07:58
Calcium 9.2 mg/dl (8.4-10.2) 08/30/25 07:58
Total Bilirubin 4.0 mg/dl (0.2-1.3) H 08/30/25 07:58
AST 35 U/L (14-36) 08/30/25 07:58
ALT 19 U/L (0-35) 08/30/25 07:58
Alkaline Phosphatase 84 U/L (38-126) 08/30/25 07:58
Diagnostic Image Results:
Ultrasound abdomen 08/29/2025
IMPRESSION:
1. Multiple gallstones within the gallbladder. Gallbladder is contracted. Mild gallbladder wall thickening. Acute cholecystitis is considered less likely due to lack of gallbladder distention, however not completely excluded. No significant biliary
ductal dilation.
2. Heterogeneous mass within the right kidney measures 8.9 cm in diameter, and is highly concerning for renal cell carcinoma (also seen on prior CT dated 03/09/2025)
3. The pancreas, spleen, and left kidney were not visualized due to overlying bowel gas and difficulties with patient cooperation.
Prior GI Procedures:
EGD: February 2025 at [facility]-required band ligation. Official records not available
Colonoscopy: Unable to recall
Assessment / Plan
-
69-year-old female with history of decompensated liver cirrhosis since 2019-not following up with any hepatology at present admitted with increased lethargy/change in mental status. Improvement of mental status today- after lactulose enema
yesterday with large bowel movements. CT head was negative. Ammonia on admission 125. repeat ammonia this am 32. Patient was transferred to [facility] March 2025 for SBO secondary to internal hernia.
--AMS secondary to hepatic encephalopathy
-- Decompensated liver cirrhosis-MELD sodium 08/30 -
-- hx of esophageal varices with band ligation back in March 2025 at [facility]
-- constipation
-- renal mass
-- pancytopenia
plan
Continue PO lactulose. Titrate to 2-3 BMs daily. Avoid constipation
2 g sodium diet. Recent ultrasound abdomen showing no ascites. Okay to hold diuretics
Daily MELD score
As per patient daughter patient is trying to make appointment with [facility] hepatology since discharge from [facility]-prior appointments were canceled by the providers
Will recommend follow-up with [facility] hepatology on discharge
Further workup/ management of liver cirrhosis as outpatient
Urology evaluation for renal mass as per medical team
Total Time Spent with Patient (in minutes): 55
-
-
Thank you for consultation and allowing me to participate in the patient's care. Please call the [facility] GI physician during the after hours with any questions or concerns.
[2025-08-30 15:00] VITALS: BP 139/78
[2025-08-30 15:11] VITALS: BMI 17.8
[2025-08-30 16:37] LABS: Glucose - Point of Care 149 mg/dl (70-99)
--- NOTE | 2025-08-30 16:55 | CM ---
Met with patient and with permission spoke with her daughter, Katya, via phone #[phone]
Patient reported that her [address] is [address]
Daughter reported that mother lives w/ her and her 3 children ages 7.5, 6, and 2.5 ; multilevel home; half bath on 1st floor; 2nd floor bath has tub w/ shower
Prior to illness, daughter reported that patient was fully independent with ADLs and ambulation and able to do the stairs
DME: [employer]
Daughter will transport home
No SNF or Home Health utilization history
Explained that PT recommends Custodial Facility when stable for Discharge;
Daughter stated that Mother will decline going to SNF; but she will speak with her about accepting Home Health services
Plan: Discharge to home when medically stable; Case Management will follow up with patient/daughter to discuss home health service options and preferences if agreeable
[2025-08-30 22:08] LABS: Glucose - Point of Care 139 mg/dl (70-99)
[2025-08-30 22:44] VITALS: BP 132/59
[2025-08-31 07:00] VITALS: BP 102/41
[2025-08-31 07:18] LABS: Glucose - Point of Care 156 mg/dl (70-99)
[2025-08-31 08:39] LABS: Hematocrit 21.1 % (37.0-47.0); Hemoglobin 7.7 g/dL (12.0-16.0); Mean Corp Hgb Conc. 36.5 g/dL (33.0-37.0); Mean Corpuscular Volume 96.3 fL (81.0-99.0); Platelet Count 47 10^3/uL (130-400); Red Cell Dist. Width 14.3 % (11.5-14.5)
[2025-08-31 09:12] LABS: Blood Urea Nitrogen 33 mg/dl (7-17); Calcium 9.2 mg/dl (8.4-10.2); Carbon Dioxide 16 mmol/L (22-30); Chloride 111 mmol/L (98-107); Estimated Creatinine Clearance 46 ml/min; Glucose 137 mg/dl (70-99); Potassium 3.5 mmol/L (3.5-5.1); Sodium 137 mmol/L (135-145); eGFR > 60.00
[2025-08-31] MEDS: NSS (PRESERVATIVE FREE) 10 ML IV (09:41)
[2025-08-31] MEDS: PROTONIX IV 40 MG IV (09:41)
[2025-08-31] MEDS: DUPHALAC/CHRONULAC 20 GRAMS PO ×3 (09:41→21:11)
[2025-08-31] MEDS: LASIX 20 MG PO (09:44)
--- NOTE | 2025-08-31 10:39 | W.PN.HOSP.TC ---
Addendum entered and electronically signed by Tanya Kang MD 08/31/25 10:52:
Lasix given this morning - addendum to prior note
will replete K
Original Note:
Today's Communication/Plan
-
repeat PT eval
hold Lasix another day
monitor BGL
Assessment / Plan
Assessment / Plan
Head CT
IMPRESSION:
No acute intracranial abnormality noted.
Abdominal US
IMPRESSION:
1. Multiple gallstones within the gallbladder. Gallbladder is contracted. Mild gallbladder wall thickening. Acute cholecystitis is considered less likely due to lack of gallbladder distention, however not completely excluded. No significant biliary
ductal dilation.
2. Heterogeneous mass within the right kidney measures 8.9 cm in diameter, and is highly concerning for renal cell carcinoma (also seen on prior CT dated 03/09/2025)
3. The pancreas, spleen, and left kidney were not visualized due to overlying bowel gas and difficulties with patient cooperation.
Hepatic encephalopathy
Hx esophageal varices (2019); hx cirrhosis; poor outpatient follow up
-ammonia 125 on admission; Head CT without acute event
-s/p rectal Lactulose with multiple BM and improvement in mentation and no asterixis on today's exam, now on oral Lactulose with goal 2-3 BM /day
-continue oral Lactulose
-US results above
-lactulose TID
-GI consulted
-hold Lasix another day
-oral PPI
-held spironolactone
Right Renal Mass
-this is a known diagnosis. She has been referred to [facility]. Encouraging patient and daughter to make another appointment.
#pancytopenia
-monitor
#essential HTN
-hold C
Hx SBO transferred to [place] 03/29
#IDDM
hold metformin
sliding scale
-A1c 3.9% - hold lantus at VT, continue BGL checks
#DVT Prophylaxis SCD
PT recommending SNF but patient refusing
#CODE status
-full code
Anticipated Discharge: Within 24 hours
Subjective/Interval History
-
Date of Service: August 31, 2025
patient is feeling better today
no tremors
feels weaker than normal but not interested in rehab
Objective Data
-
Labs:
Laboratory Results
08/31/25
07:54
WBC 3.6 L
Hgb 7.7 L
Hct 21.1 L
Plt Count 47 L
Sodium 137
Potassium 3.5
Chloride 111 H
Carbon Dioxide 16 L
BUN 33 H
Creatinine 0.8
Glucose 137 H
Calcium 9.2
Vital Signs:
Vital Signs
Temp Pulse Resp BP Pulse Ox
98.4 F 75 18 130/55 100
08/31/25 07:00 08/31/25 09:44 08/31/25 07:00 08/31/25 09:44 08/31/25 07:00
I&O
08/30/25 08/31/25 09/01/25
06:59 06:59 06:59
Intake Total 100 / 100
Balance 100 / 100
Review of Systems
-
History Source: Patient
All other systems: Reviewed and negative
Physical Exam
-
General: No Apparent Distress
HEENT: Other (scab mid forehead)
Respiratory: Clear to Auscultation; Negative Wheezes
Cardiac: Regular Rhythm and S1/S2
GI: Soft and Nontender
Musculoskeletal: No Edema
Skin: Warm and Dry; Negative Rash
Neuro: AO x 3
Psych: Calm and Confused
Data Reviewed
-
Diagnostic Radiology: Report Reviewed by me
Labs: Labs Reviewed by me
[2025-08-31] MEDS: KCL 40 MEQ PO (11:31)
[2025-08-31 11:58] LABS: Glucose - Point of Care 206 mg/dl (70-99)
--- NOTE | 2025-08-31 12:42 | W.PN.GI.CBS2 ---
Today's Communication / Plan
-
Continue lactulose�titrate to bowel movement. Avoid constipation
Follow-up with hepatology at [place]
Assessment / Plan
-
69-year-old female with history of decompensated liver cirrhosis since 2019-not following up with any hepatology at present admitted with increased lethargy/change in mental status. Improvement of mental status today- after lactulose enema
yesterday with large bowel movements. CT head was negative. Ammonia on admission 125. repeat ammonia this am 32. Patient was transferred to [place] March 2025 for SBO secondary to internal hernia.
--AMS secondary to hepatic encephalopathy
-- Decompensated liver cirrhosis-MELD sodium 08/30 -
-- hx of esophageal varices with band ligation back in March 2025 at [facility]
-- constipation
-- renal mass
-- pancytopenia
plan
Continue PO lactulose. Titrate to 2-3 BMs daily. Avoid constipation
2 g sodium diet. Recent ultrasound abdomen showing no ascites. Okay to hold diuretics
Daily MELD score
As per patient daughter patient is trying to make appointment with [facility] hepatology since discharge from [place]-prior appointments were canceled by the providers
Will recommend follow-up with [facility] hepatology on discharge
Further workup/ management of liver cirrhosis as outpatient
Urology evaluation for renal mass as per medical team
No further recommendation at this point.will s/o
Total Time Spent with Patient (in minutes): 35
Subjective
Subjective
Date of Service: August 31, 2025
No GI complaints. Feeling better
Objective
Data Reviewed
Laboratory Data:
Laboratory Results
08/31/25 07:54
08/31/25 07:54
Laboratory Results
PT 16.5 Sec (11.4-14.6) H 08/29/25 20:18
INR 1.36 08/29/25 20:18
APTT 28.2 Sec (23.4-35.0) 08/29/25 20:18
Magnesium 2.3 mg/dl (1.6-2.3) 08/30/25 07:58
Total Bilirubin 4.0 mg/dl (0.2-1.3) H 08/30/25 07:58
AST 35 U/L (14-36) 08/30/25 07:58
ALT 19 U/L (0-35) 08/30/25 07:58
Alkaline Phosphatase 84 U/L (38-126) 08/30/25 07:58
Vital Signs and I&O:
Vital Signs
Temp Pulse Resp BP Pulse Ox
98.4 F 75 18 130/55 100
08/31/25 07:00 08/31/25 09:44 08/31/25 07:00 08/31/25 09:44 08/31/25 07:00
I&O
08/30/25 08/31/25 09/01/25
06:59 06:59 06:59
Intake Total 100 / 100
Balance 100 / 100
Physical Exam
Physical Exam
GI: Soft, Non Distended and Non Tender
Neuro: Other (AAO x 3)
--- NOTE | 2025-08-31 13:32 | W.DCSUMMARY ---
Discharge Summary
Discharge Data
Date of Admission: 08/29/25
Date of Discharge: 09/01/25
-
Pending Results: No
Hospital Course
Discharging Physician : Dr. Tanya Kang
Disposition : Home
Primary care physician : Dr. Ede Escalante
Principal Discharge diagnosis : Hepatic Encephalopathy
Hospital Course :
Ms. Kiel Ochoa is a 69 yo woman with hx cirrhosis/esophageal varices (dx 2019), known right renal mass, essential HTN, IDDM (dx 03/29) presents to the ER with lethargy. Triage vitals stable, labs with chronic pancytopenia, Na 132, Cr 1.0, NH3
132. She was admitted to medicine with GI consulting for treatment of hepatic encephalopathy. She improved with lactulose enemas overnight and was tolerating PO the following morning. She should continue Lactulose with goal BM 2-3 x/day. She
worked with PT who recommends SNF, but patient and family prefer she go home.
Of note, right renal mass seen on US concerning for malignancy. This is a known finding. Discussed with patient's daughter making follow up appt at [facility] as last one was cancelled.
Patient's A1c is 3.9% Concern her glucose is going too low in evenings in setting of liver disease. She was observed off of Lantus in the hospital. She is discharged on a lower dose and told to continue fingerstick checks. A1c repeated for very
low value and daughter denies low blood glucose readings at home.
Patient should follow up with [facility] and [facility].
Time spent on discharge was 35 minutes.
Important imaging findings :
Cervical Spine CTFINDINGS/impression:
No fracture. No anterior or posterior listhesis. No prevertebral soft tissue swelling.
At C6-7, there is moderate to advanced disc space narrowing. Endplate sclerosis. Mild endplate osteophyte formation and uncinate hypertrophy. The endplate margins demonstrate small erosive changes with sclerotic margination. Most consistent with
degenerative Schmorl's nodes.
Mild disc space narrowing at C5-6.
Mild facet arthrosis at multiple levels, right greater than left.
HEAD CT
IMPRESSION:
No acute intracranial abnormality noted.
Abdominal US
IMPRESSION:
1. Multiple gallstones within the gallbladder. Gallbladder is contracted. Mild gallbladder wall thickening. Acute cholecystitis is considered less likely due to lack of gallbladder distention, however not completely excluded. No significant biliary
ductal dilation.
2. Heterogeneous mass within the right kidney measures 8.9 cm in diameter, and is highly concerning for renal cell carcinoma (also seen on prior CT dated 03/09/2025)
3. The pancreas, spleen, and left kidney were not visualized due to overlying bowel gas and difficulties with patient cooperation.
Procedure findings :
Discharge Plan
-
Patient Disposition: Home (Routine Discharge)
Discharge Diagnosis/Procedures: Hepatic Encephalopathy; known right renal mass
Diet: 2 Gram Sodium
Activity: As tolerated
Driving Restrictions: As prior to admission
Bathing Restrictions: None
Other Services: PT
Activity Restrictions/Additional Instructions:
Please make follow up appointments at [facility] with Hepatology for management of liver disease and Urology to discuss surgery for right renal mass
Referrals:
Ede Escalante Jr., MD [Family Provider, Internal Medicine] - in less than 1 week
Additional Discharge Medication Instructions: Ok to Stop Coreg as your blood pressures have been low/normal in the hospital. discuss with your outpatient doctors if another beta-aisha should be added to your medication regimen.
It is important that you take Lactulose. It is ordered 3x/day. Titrate as needed to ensure you have 2-3 bowel movements per day.
You are started on Protonix daily to help decrease acid in the stomach.
Your average sugar level was shown to be very low (repeat level pending). For now, decrease Lantus to 3 units in evenings. Continue checking sugar levels at home and report results to your outpatient provider, Dr. Escalante.
It is important you make repeat follow up appointments with [facility] and [facility].
Prescriptions:
New
lactulose 10 gram/15 mL Solution
20 g PO TID Qty: 3000 0RF
Rx Instructions:
Titrate to 2-3 bowel movements per day
pantoprazole 40 mg Tablet,Delayed Release (Dr/Ec)
40 mg PO DAILY Qty: 30 0RF
Continued
furosemide 20 mg tablet
20 mg PO DAILY
spironolactone 50 mg tablet
50 mg PO DAILY
Changed
insulin glargine [Lantus Solostar U-100 Insulin] 100 unit/mL (3 mL) insulin pen
3 unit SC HS Qty: 0 0RF
Discontinued
carvedilol 6.25 mg tablet
6.25 mg PO BID
Discharge Orders:
Discharge Patient (As Directed); Ordered 09/01/25
Ordered By: Tanya Kang
Discharge Date and Time
Discharge Date/Time: 09/01/25 13:17
Print Language: MALIAN
[2025-08-31 14:40] LABS: Glucose - Point of Care 162 mg/dl (70-99)
[2025-08-31 15:00] VITALS: BP 129/46
[2025-08-31 15:42] VITALS: BP 139/60; PULSE 70; O2SAT 100
[2025-08-31 16:31] LABS: Glucose - Point of Care 138 mg/dl (70-99)
[2025-08-31] MEDS: NOVOLOG FLEXPEN-LOW RESISTANCE SC (16:41)
[2025-08-31] MEDS: NSS (PRESERVATIVE FREE) IV (20:00)
[2025-08-31 22:52] LABS: Glucose - Point of Care 181 mg/dl (70-99)
[2025-08-31 23:09] VITALS: BP 118/56
[2025-09-01 07:00] VITALS: BP 110/41
[2025-09-01 07:09] LABS: Glucose - Point of Care 148 mg/dl (70-99)
[2025-09-01] MEDS: LASIX 20 MG PO (07:28)
[2025-09-01] MEDS: PROTONIX 40 MG PO (07:28)
[2025-09-01] MEDS: DUPHALAC/CHRONULAC 20 GRAMS PO (07:28)
[2025-09-01] MEDS: NSS (PRESERVATIVE FREE) IV (07:29)
[2025-09-01] MEDS: NOVOLOG FLEXPEN-LOW RESISTANCE SC (07:35)
--- NOTE | 2025-09-01 10:40 | W.PN.HOSP.TC ---
Today's Communication/Plan
-
OK for DC
Assessment / Plan
Assessment / Plan
Head CT
IMPRESSION:
No acute intracranial abnormality noted.
Abdominal US
IMPRESSION:
1. Multiple gallstones within the gallbladder. Gallbladder is contracted. Mild gallbladder wall thickening. Acute cholecystitis is considered less likely due to lack of gallbladder distention, however not completely excluded. No significant biliary
ductal dilation.
2. Heterogeneous mass within the right kidney measures 8.9 cm in diameter, and is highly concerning for renal cell carcinoma (also seen on prior CT dated 03/09/2025)
3. The pancreas, spleen, and left kidney were not visualized due to overlying bowel gas and difficulties with patient cooperation.
Hepatic encephalopathy
Hx esophageal varices (2019); hx cirrhosis; poor outpatient follow up
-ammonia 125 on admission; Head CT without acute event
-s/p rectal Lactulose with multiple BM and improvement in mentation and no asterixis on today's exam, now on oral Lactulose with goal 2-3 BM /day
-continue oral Lactulose at DC
-US results above (no abdominal pain)
-lactulose TID
-GI consult appreciated
- resume both diuretics on DC with labs in 5-7 days
-follow up with outpatient Hepatology at [facility]
Right Renal Mass
-this is a known diagnosis. She has been referred to [facility]. Encouraging patient and daughter to make another appointment.
#pancytopenia
-monitor
#essential HTN
-hold C
Hx SBO transferred to [facility] 03/29
#IDDM
hold metformin
sliding scale
-A1c 3.9% - repeating A1c as daughter denies episodes of hypoglycemia and BGL elevated here
-lower dose Lantus at DC
#DVT Prophylaxis SCD
PT recommending SNF but patient refusing
#CODE status
-full code
Anticipated Discharge: Today
Subjective/Interval History
-
Date of Service: September 01, 2025
overall feeling better
feels ready to go home today
Objective Data
-
Labs:
Laboratory Results
09/01/25
06:00
WBC Cancelled
Hgb Cancelled
Hct Cancelled
Plt Count Cancelled
Sodium Cancelled
Potassium Cancelled
Chloride Cancelled
Carbon Dioxide Cancelled
BUN Cancelled
Creatinine Cancelled
Glucose Cancelled
Calcium Cancelled
Vital Signs:
Vital Signs
Temp Pulse Resp BP Pulse Ox
98.1 F 78 12 110/41 100
09/01/25 07:00 09/01/25 07:00 09/01/25 07:00 09/01/25 07:00 09/01/25 07:00
Review of Systems
-
History Source: Patient
All other systems: Reviewed and negative
Physical Exam
-
General: No Apparent Distress
HEENT: Other (scab mid forehead)
Respiratory: Clear to Auscultation; Negative Wheezes
Cardiac: Regular Rhythm and S1/S2
GI: Soft and Nontender
Musculoskeletal: No Edema
Skin: Warm and Dry; Negative Rash
Neuro: AO x 3
Psych: Calm and Confused
Data Reviewed
-
Diagnostic Radiology: Report Reviewed by me
Labs: Labs Reviewed by me
--- NOTE | 2025-09-01 10:48 | W.DS.TRANS ---
DC Summary - Concierge
-
Discharge Instructions:
Discharge Diagnosis/Procedures Hepatic Encephalopathy; known right renal mass
Diet 2 Gram Sodium
Activity As tolerated
Driving Restrictions As prior to admission
Bathing Restrictions None
Other Services PT
Instructions:
Stand-Alone Forms:
Changes to Home Medications: Yes
Discharge Medications:
DC Medications w/original date entered in [facility]
furosemide 20 mg tablet 20 mg PO DAILY 08/29/25
spironolactone 50 mg tablet 50 mg PO DAILY 08/29/25
insulin glargine 100 unit/mL (3 mL) subcutaneous pen (Lantus Solostar U-100 Insulin) 3 unit (0.03 mL) SC HS #0 mL 09/01/25
lactulose 10 gram/15 mL oral solution 20 g (30 mL) PO TID #3,000 mL 09/01/25
pantoprazole 40 mg tablet,delayed release 40 mg PO DAILY #30 tabs 09/01/25
Home Medication Changes
Ok to Stop Coreg as your blood pressures have been low/normal in the hospital. discuss with your outpatient doctors if another beta-aisha should be added to your medication regimen.
It is important that you take Lactulose. It is ordered 3x/day. Titrate as needed to ensure you have 2-3 bowel movements per day.
You are started on Protonix daily to help decrease acid in the stomach.
Your average sugar level was shown to be very low (repeat level pending). For now, decrease Lantus to 3 units in evenings. Continue checking sugar levels at home and report results to your outpatient provider, Dr. Escalante.
It is important you make repeat follow up appointments with [facility].
Pending Results: Yes
Additional Pending Results:
repeat HgA1c
--- NOTE | 2025-09-01 10:57 | CM ---
Patient for discharge home today
Met w/ patient bedside, aware and excited to discharge
Therapy rec HH, patient declined this and is interested in OP PT instead. Asked hospitalist to provide script
Daughter will transport
Plan: Home, OP PT script
[2025-09-01 11:31] LABS: Glucose - Point of Care 238 mg/dl (70-99)
[2025-09-01] MEDS: NOVOLOG FLEXPEN-LOW RESISTANCE 2 UNITS SC (12:10)
[2025-09-01 12:48] VITALS: BP 141/62
== END 2025-09-01 13:17 | disposition home or self-care (01) | DRG 442 ==
LOC: 4 WEST ACU 21:22
PROVIDERS: Nurse Practitioner; Registered Nurse; ADMITTING PHYSICIAN Hospitalist; ATTENDING PHYSICIAN Student in an Organized Health Care Education/Training Program; EMERGENCY PHYSICIAN Emergency Medicine; FAMILY PHYSICIAN Internal Medicine; OTHER PHYSICIAN Internal Medicine Gastroenterology
DX: K76.82 Hepatic encephalopathy (principal); D61.818 Other pancytopenia; D50.9 Iron deficiency anemia, unspecified; I10 Essential (primary) hypertension; E11.649 Type 2 diabetes mellitus with hypoglycemia without coma; N28.89 Other specified disorders of kidney and ureter; K74.60 Unspecified cirrhosis of liver; K59.00 Constipation, unspecified; M48.02 Spinal stenosis, cervical region; Z59.71 Insufficient health insurance coverage; Z79.899 Other long term (current) drug therapy
CPT/HCPCS: 70450; 72125; 76700; 80048; 80053; 81003; 81015; 82140; 82248; 82607; 82728; 82746; 82962; 83036; 83540; 83550; 83605; 83735; 84484; 85025; 85027; 85610; 85730; 93005; 96360; 97116; 97163; 97167; 97530; 97535; 99285